=== PATIENT | male | born 1930 | race Caucasian/White ===

== ENCOUNTER 2016-11-14 19:26 | Inpatient (IN) | payer OTHER ==
[~2016-11-14] VITALS: Ht 162.6 cm; Wt 65.0 kg
[~2016-11-14 19:26] MED LIST: ACETAMINOPHEN-1 EAC1; AMLODIPINE BES2.5 MG PO; ARICEPT5 MG PO; ATORVASTATIN CA10 MG PO; BACTRIM,SEPT1 TABLET PO; BUPROPION HCL100 M1 PO; CEFDINIR300 MG PO; CEPHALEXIN500 MG PO; Colace PO; Coumadin,Jantoven PO; DONEPEZIL HCL5 MG PO; ELIQUIS5 MG PO; ENDOCET 5-3251 EACH PO; HYDROCODON-ACE1 EAC7 PO; LISINOPRIL10 MG PO; Mineral Oil PO; NORVASC2.5 MG PO; Oscal 500 w/Vitamin PO; QUETIAPINE FUMA50 MG PO; SEROQUEL100 MG PO; SEROQUEL12.5 MG PO; SIMVASTATIN10 MG PO; SIMVASTATIN40 MG PO; Tylenol/Codeine #3 PO; VITAMIN D400 UNI1 PO; VITAMIN E400 UNIT PO; XARELTO20 MG PO; ZOCOR40 MG PO; celeBREX PO
[2016-11-15 00:36] LABS: CHLORIDE 107 mEq/L (99-109); POTASSIUM 3.8 mEq/L (3.7-5.4); SODIUM 140 mEq/L (136-147)
[2016-11-15 00:38] LABS: GLUCOSE 93 mg/dL (70-99)
[2016-11-15 00:39] LABS: ANION GAP 8 MEQ/L (2-14)
[2016-11-15 00:41] LABS: GFR ESTIMATE (CALCULATED) > 59 mL/min/; SERUM ETHYL ALCOHOL < 10 mg/dL
[2016-11-15 00:42] LABS: UREA NITROGEN (BUN) 14 mg/dL (9-23)
[2016-11-15 00:50] LABS: TROP-I INTERPRETATION NEGATIVE; TROPONIN-I 0.02 ng/mL (0.0-0.30)
[2016-11-15 01:14] LABS: HEMATOCRIT 42.8 % (38.0-50.0); MCH 32.2 PG (29.0-34.0); MCHC 33.2 G/DL (30.0-36.0); MCV 97.1 FL (86-99); MEAN PLAT.VOLUME 10.7 uM^3 (9.0-12.4); PLATELET COUNT 193 K/uL (156-360); RBC DIS.WIDTH-SD 41.2 % (39-53); RED BLOOD COUNT 4.41 M/uL (4.00-5.50); WHITE BLOOD COUNT 7.7 K/uL (4.1-10.2)
[2016-11-15 02:43] VITALS: BP 168/79
[2016-11-15 07:51] VITALS: BP 133/79
[2016-11-15 15:17] VITALS: BP 154/96
[2016-11-16 15:17] VITALS: BP 124/74
[2016-11-17 07:46] VITALS: BP 132/72
[2016-11-17 15:25] VITALS: BP 141/80
[2016-11-18 07:55] VITALS: BP 144/75
[2016-11-18 15:38] VITALS: BP 121/66
[2016-11-19 07:59] VITALS: BP 130/76
[2016-11-19 15:39] VITALS: BP 133/78
[2016-11-20 09:28] VITALS: BP 142/76
[2016-11-20 15:15] VITALS: BP 139/62
[2016-11-21 07:38] VITALS: BP 122/71
[2016-11-21] MEDS ORDERED: MIRTAZAPINE15 MG PO (10:24)
== END 2016-11-21 11:12 | disposition home or self-care (01) | DRG 57 ==
LOC: EME 19:26 → 1WEST 11-15 01:21 → EDOF 11-15 01:21 → 1WEST 11-15 01:21
PROVIDERS: Emergency Medicine
DX: G30.1 Alzheimer's disease with late onset (principal); F02.81 Dementia in other diseases classified elsewhere, unspecified severity, with behavioral disturbance; I10 Essential (primary) hypertension; E78.5 Hyperlipidemia, unspecified; E11.9 Type 2 diabetes mellitus without complications; Z87.891 Personal history of nicotine dependence; Z96.611 Presence of right artificial shoulder joint; Z96.612 Presence of left artificial shoulder joint; Z96.651 Presence of right artificial knee joint
CPT/HCPCS: 70450; 80048; 81003; 84484; 85027; 87086; 90839; 97150 GO; 97166 GO; 99281; 99284; G0480